=== PATIENT | female | born 1970 | race Caucasian/White ===

== ENCOUNTER 2022-06-21 10:47 | Outpatient (CLI) | payer OTHER ==
[~2022-06-21] VITALS: Ht 172.7 cm; Wt 113.4 kg
[2022-06-21] MEDS ORDERED: CYAN50003 PO (11:45)
[2022-06-21] MEDS ORDERED: MULT-190 (11:45)
[2022-06-21] MEDS ORDERED: ASCO100T12 PO (11:45)
[2022-06-21] MEDS ORDERED: FERR-121 PO (11:45)
[2022-06-21 12:10] LABS: BASOPHILS % (AUTO) 0.7 % (0-1); EOSINOPHILS # (AUTO) 0.1 X10'3 (0-0.9); EOSINOPHILS % (AUTO) 1.5 % (0-6); LYMPHOCYTES # (AUTO) 1.1 X10'3 (1.1-4.8); LYMPHOCYTES % (AUTO) 19.6 % (21-51); MEAN CORPUSCULAR HEMOGLOBIN 27.6 PG (27.0-31.0); MEAN CORPUSCULAR HGB CONC 33.3 g/dL (33.0-36.5); MEAN CORPUSCULAR VOLUME 83.1 FL (78-98); MEAN PLATELET VOLUME 9.4 FL (7.4-10.4); MONOCYTES # (AUTO) 0.3 X10'3 (0-0.9); MONOCYTES % (AUTO) 5.8 % (2-12); NEUTROPHILS # (AUTO) 4.2 X10'3 (1.8-7.7); NEUTROPHILS % (AUTO) 72.4 % (42-75); PRE OP HEMOGLOBIN 14.3 g/dL (12.0-16.0); PRE OP PLATELET COUNT 214 X10'3 (140-440); RED BLOOD COUNT 5.17 X10'6 (4.20-5.60); RED CELL DISTRIBUTION WIDTH 13.1 % (11.5-14.5)
[2022-06-21 12:28] LABS: ALBUMIN/GLOBULIN RATIO 1.2 (1.1-1.5); ALKALINE PHOSPHATASE 54 IU/L (46-116); BLOOD UREA NITROGEN 11 MG/DL (7-18); BUN/CREATININE RATIO 17.5 (6.6-38.0); CHLORIDE 107 MMOL/L (99-107); CREATININE 0.63 MG/DL (0.40-0.90); PRE OP ALT 31 U/L (30-65); PRE OP ANION GAP 11 (8-16); PRE OP AST 19 U/L (10-37); PRE OP BILIRUB, TOTAL 0.4 MG/DL (0.0-1.0); PRE OP GLUCOSE 94 MG/DL (70-104); PRE OP SODIUM 143 MMOL/L (135-145); TOTAL CARBON DIOXIDE 25.5 MMOL/L (24-32); TOTAL PROTEIN 7.4 G/DL (6.4-8.2); eGFR > 90 ML/MIN
[2022-06-21 12:36] LABS: HCG SERUM QL NEGATIVE
[2022-06-27] MEDS ORDERED: ringers solution, lacted 1,000 ML IV SCH (05:00)
[2022-06-27] MEDS ORDERED: celeCOXIB 100mg capsule PO ONE (05:30)
[2022-06-27] MEDS ORDERED: gabapentin 300mg capsule PO ONE (05:30)
[2022-06-27] MEDS ORDERED: ceFOXitin 2GM-NS 100mL ADDvant 100 ML IV ONE (05:30)
[2022-06-27] MEDS ORDERED: acetaminophen 325mg tablet PO ONE (05:30)
[2022-06-27] MEDS ORDERED: famotidine 20mg tablet PO ONE (05:30)
[2022-06-27] MEDS ORDERED: phenazopyridine 100mg tablet PO ONE (05:30)
== END 2022-06-21 23:59 | disposition home or self-care (01) ==
LOC: LAB 10:47 → EDSTATUS 06-27 07:30
PROVIDERS: ATTEND Obstetrics & Gynecology
DX: D25.9 Leiomyoma of uterus, unspecified (principal); Z79.899 Other long term (current) drug therapy; Z98.890 Other specified postprocedural states; Z87.891 Personal history of nicotine dependence
CPT/HCPCS: 36415; 80053; 84703; 85025; 86885; 86900; 86901; 87081; 87811; 93005; J0694; J7120

== ENCOUNTER 2022-08-29 08:50 | Observation (INO) | payer OTHER ==
[2022-08-22 12:25] LABS: BASOPHILS % (AUTO) 0.4 % (0-1); EOSINOPHILS # (AUTO) 0.1 X10'3 (0-0.9); EOSINOPHILS % (AUTO) 1.7 % (0-6); LYMPHOCYTES % (AUTO) 16.7 % (21-51); MEAN CORPUSCULAR HEMOGLOBIN 29.1 PG (27.0-31.0); MEAN CORPUSCULAR VOLUME 88.2 FL (78-98); MEAN PLATELET VOLUME 10.1 FL (7.4-10.4); MONOCYTES # (AUTO) 0.3 X10'3 (0-0.9); MONOCYTES % (AUTO) 5.4 % (2-12); NEUTROPHILS # (AUTO) 4.7 X10'3 (1.8-7.7); NEUTROPHILS % (AUTO) 75.8 % (42-75); PRE OP HEMATOCRIT 42.3 % (35.0-45.0); PRE OP PLATELET COUNT 236 X10'3 (140-440); RED CELL DISTRIBUTION WIDTH 14.7 % (11.5-14.5)
[2022-08-22 12:38] LABS: ALBUMIN 3.8 G/DL (3.4-5.0); ALBUMIN/GLOBULIN RATIO 1.2 (1.1-1.5); ALKALINE PHOSPHATASE 57 IU/L (46-116); BLOOD UREA NITROGEN 11 MG/DL (7-18); BUN/CREATININE RATIO 17.5 (6.6-38.0); CALCIUM 8.9 MG/DL (8.5-10.1); CHLORIDE 103 MMOL/L (99-107); CREATININE 0.63 MG/DL (0.40-0.90); PRE OP ALT 31 U/L (30-65); PRE OP ANION GAP 11 (8-16); PRE OP AST 15 U/L (10-37); PRE OP BILIRUB, TOTAL 0.5 MG/DL (0.0-1.0); PRE OP GLUCOSE 103 MG/DL (70-104); PRE OP POTASSIUM 3.8 MMOL/L (3.4-5.1); PRE OP SODIUM 140 MMOL/L (135-145); TOTAL CARBON DIOXIDE 25.6 MMOL/L (24-32); eGFR > 90 ML/MIN
[~2022-08-29] VITALS: Ht 172.7 cm; Wt 116.1 kg
[2022-08-29] VITALS (14 sets, daily range): BP systolic 108–161; BP diastolic 74–113
[~2022-08-29 08:50] MED LIST: FERR-39 PO; MULT-1085 PO; acetaminophen 325mg tablet PO ONE; ceFOXitin 2GM-NS 100mL ADDvant 100 ML IV ONE; celeCOXIB 100mg capsule PO ONE; famotidine 20mg tablet PO ONE; gabapentin 300mg capsule PO ONE; phenazopyridine 100mg tablet PO ONE; ringers solution, lacted 1,000 ML IV SCH
[2022-08-29] MEDS ORDERED: BUPIVAcaine/PF 5 mg/ml 10ml ONE (11:45)
[2022-08-29] MEDS ORDERED: LIDOCAINE 1%/EPI 1:100,000 inj. 10 ML multi-dose vial ONE (11:46)
[2022-08-29] MEDS ORDERED: ringers solution, lacted 1,000 ML IV SCH (12:00)
[2022-08-29] MEDS ORDERED: ondansetron/PF 4mg/2ml inj IV PRN ×2 (12:00→15:30)
[2022-08-29] MEDS ORDERED: meperidine/PF 25mg/ml syringe IV PRN ×2 (12:00)
[2022-08-29] MEDS ORDERED: midazolam 1 mg/ML 2ml injection ONE (12:00)
[2022-08-29] MEDS ORDERED: morphine 2 MG/ML inj. syringe IV PRN (12:00)
[2022-08-29] MEDS ORDERED: fentaNYL /PF 50mcg/ml 5ml ampule ONE (12:00)
[2022-08-29] MEDS ORDERED: proCHLORperazine 10 MG/2 ml inj IV PRN (12:00)
[2022-08-29] MEDS ORDERED: morphine 4 MG/ML inj SYRINge IV PRN (12:00)
[2022-08-29] MEDS ORDERED: sevoflurane 250ml liquid IH ONE (12:04)
[2022-08-29] MEDS ORDERED: LIDOcaine 2% (20mg/ml) 5ml vial ONE (12:37)
[2022-08-29] MEDS ORDERED: propofol inj 20 ML IV ONE (12:37)
[2022-08-29] MEDS ORDERED: dexamethasone sod phosphate 4mg/ml inj. ONE (12:37)
[2022-08-29] MEDS ORDERED: ondansetron/PF 4mg/2ml inj ONE (12:37)
[2022-08-29] MEDS ORDERED: rocuronium 10mg/ml inj IV ONE (12:37)
[2022-08-29] MEDS ORDERED: glycopyrrolate 0.2mg/ml inj ONE (13:07)
[2022-08-29] MEDS ORDERED: ePHEDrine 50MG/ML INJ. ONE (13:07)
[2022-08-29] MEDS ORDERED: BUPIVAcaine/PF 2.5mg/ml (0.25%) 10ml vial ONE (13:13)
[2022-08-29] MEDS ORDERED: meperidine/PF 25mg/ml syringe ONE (14:58)
[2022-08-29] MEDS ORDERED: sugammadex 200mg/2ml injection IV ONE (15:11)
[2022-08-29] MEDS ORDERED: neostigmine methylsulfate 1 MG/ML 10ml vial ONE (15:16)
--- NOTE | 2022-08-29 15:16 | NUR ---
Received from OR via HOSPITAL BED, accompanied by Anesthesiologist DR WATKINS and report given by Anesthesiologist. PT IS STILL VERY SLEEPY. PT PLACED ON BEDSIDE MONITOR AND VSS. PT RECEIVING 8L O2 TO MASK AND TOLERATING WELL. WILL TITRATE O2 DOWN PT TOLERATES. PT HAS 20G PIV TO RIGHT FOREARM WITH LR INFUSING @ 100ML/HR. PT HAS 3 SMALL INCISION SITES AT LOWER ABD THAT ARE CDI, DUSTIN PAD WITH MESH BRIEF IS CDI. PT RESTING COMFORTABLY. WILL CONTINUE TO ASSESS. DUVAL CATHETER DRAINING ORANGE CLEAR URINE. Addendum: 08/29/22 at 1549 by Lui Sterling RN Amended: Links added.
[2022-08-29] MEDS ORDERED: temazepam 15mg capsule PO PRN (15:30)
[2022-08-29] MEDS ORDERED: mag hydrox/Alum hydrox/simeth 30ml oral suspension PO PRN (15:30)
[2022-08-29] MEDS ORDERED: diphenhydrAMINE 50 mg/ml inj IV PRN (15:30)
[2022-08-29] MEDS: ringers solution, lacted 1,000 ML IV SCH ×2 (15:30→20:13)
[2022-08-29] MEDS ORDERED: magnesium hydroxide 30ml (MOM) UD suspension PO PRN (15:30)
[2022-08-29] MEDS ORDERED: oxyCODONE IR 5mg (immed. release) tablet PO PRN ×2 (15:30)
[2022-08-29] MEDS: meperidine/PF 25mg/ml syringe IV PRN ×2 (15:40→16:16)
--- NOTE | 2022-08-29 17:06 | NUR ---
PATIENT HAS MET ALL CRITERIA FOR TRANSFER TO SURGICAL FLOOR. VSS. DRESSINGS INTACT. BED LOW, CALL LIGHT PRESENT AND 2 RAILS UP. RN PRESENT TO ACCEPT CARE OF PATIENT AND REPORT HAS BEEN CALLED. ALL QUESTIONS ANSWERED TO ACCEPTING RN. Addendum: 08/29/22 at 1722 by Lui Sterling RN Amended: Links added.
[2022-08-29] MEDS: simethicone 80mg chew tab PO SCH (18:03)
--- NOTE | 2022-08-29 18:42 | NUR ---
Patient in room [facility]. I have received report from TOMMY Carrera and had the opportunity to ask questions and assume patient care.
[2022-08-29] MEDS: docusate sod 100mg capsule PO SCH (19:57)
[2022-08-29] MEDS: ketorolac trometh. 30mg/ml inj. IV SCH (19:58)
[2022-08-29] MEDS: acetaminophen 325mg tablet PO SCH (19:58)
[2022-08-30] MEDS: acetaminophen 325mg tablet PO SCH ×2 (01:57→07:26)
[2022-08-30] MEDS: ketorolac trometh. 30mg/ml inj. IV SCH ×2 (01:58→07:27)
[2022-08-30] MEDS: ringers solution, lacted 1,000 ML IV SCH (04:45)
--- NOTE | 2022-08-30 06:24 | NUR ---
Problems reprioritized. Patient report given, questions answered & plan of care reviewed with TOMMY Carrera.
[2022-08-30 07:03] LABS: BASOPHILS % (AUTO) 0.3 % (0-1); EOSINOPHILS % (AUTO) 0.1 % (0-6); HEMATOCRIT 32.9 % (35.0-45.0); HEMOGLOBIN 10.9 g/dl (12.0-16.0); LYMPHOCYTES % (AUTO) 10.4 % (21-51); MEAN CORPUSCULAR HEMOGLOBIN 29.4 PG (27.0-31.0); MEAN CORPUSCULAR HGB CONC 33.3 g/dL (33.0-36.5); MEAN CORPUSCULAR VOLUME 88.3 FL (78-98); MEAN PLATELET VOLUME 9.4 FL (7.4-10.4); MONOCYTES # (AUTO) 0.6 X10'3 (0-0.9); MONOCYTES % (AUTO) 6.3 % (2-12); NEUTROPHILS # (AUTO) 8.1 X10'3 (1.8-7.7); NEUTROPHILS % (AUTO) 82.9 % (42-75); PLATELET COUNT 223 X10'3 (140-440); RED BLOOD COUNT 3.72 X10'6 (4.20-5.60); RED CELL DISTRIBUTION WIDTH 14.3 % (11.5-14.5); WHITE BLOOD COUNT 9.7 X10'3 (4.5-11.0)
[2022-08-30 07:18] LABS: ALBUMIN 2.7 G/DL (3.4-5.0); ANION GAP 7 (8-16); BLOOD UREA NITROGEN 9 MG/DL (7-18); CALCIUM 7.9 MG/DL (8.5-10.1); CHLORIDE 106 MMOL/L (99-107); GLUCOSE 104 MG/DL (70-104); POTASSIUM 3.7 MMOL/L (3.5-5.1); SODIUM 139 MMOL/L (135-145); TOTAL CARBON DIOXIDE 26.5 MMOL/L (24-32); eGFR > 90 ML/MIN
[2022-08-30] MEDS: docusate sod 100mg capsule PO SCH (07:25)
[2022-08-30] MEDS: simethicone 80mg chew tab PO SCH (07:26)
[2022-08-30] MEDS ORDERED: metoclopramide 5 mg/ml inj IV PRN (08:35)
[2022-08-30] MEDS ORDERED: ONDA4TAB12 PO (08:38)
[2022-08-30 10:00] VITALS: BP 129/74
--- NOTE | 2022-08-30 11:19 | NUR ---
PT DISCHARGED IN STABLE CONDITION, IV REMOVED TIP INTACT NO COMPLICATIONS . BELONGINGS SENT WITH PT. PT EDUCATED ON POST OP FOLLOW UP/CARE. PT DISCHARGED VIA MEDICAL PERSONNEL TO HOME Addendum: 08/30/22 at 1121 by Debi Kerr RN PT DISCHARGED IN PRIVATE VEHICLE WITH HUBBY TO HOME
== END 2022-08-30 11:07 | disposition home or self-care (01) ==
LOC: PAS 08:50 → EDSTATUS 10:15 → PAS IN 15:29 → SUR 3N 17:26
PROVIDERS: ADMIT Obstetrics & Gynecology; ATTEND Obstetrics & Gynecology
DX: D25.9 Leiomyoma of uterus, unspecified (principal); N73.6 Female pelvic peritoneal adhesions (postinfective); N85.8 Other specified noninflammatory disorders of uterus; G89.18 Other acute postprocedural pain; N92.0 Excessive and frequent menstruation with regular cycle; Z87.891 Personal history of nicotine dependence; Z79.899 Other long term (current) drug therapy
CPT/HCPCS: 36415; 52000; 57283; 58554; 80048; 80053; 82948; 85025; 86885; 86900; 86901; 96374; 96375; 96376; C1758; G0378; J0694; J1100; J1885; J2175; J2250; J2270; J2405; J2704; J2710; J3010; J3490; J7120; A4215; A4355; A4615; A4618; A7000